=== PATIENT | male | born 1985 | race American Indian/Alaskan Native ===

== ENCOUNTER 2018-06-26 13:01 | Emergency (ER) | payer BC ==
[2018-06-26 13:08] VITALS: BP 128/80; PULSE 98; RESP 17; TEMP 99.4; O2SAT 95
[2018-06-26] MEDS ORDERED: Amoxicillin-Clav 875-125 mg Tab PO STA (13:29)
--- NOTE | 2018-06-26 13:31 | C.PDOC ---
History Of Present Illness 32 y/o male pt presents to the ER c/o fever x1 day. Associated sx includes headache (8/10), chills, body aches, sore and swollen throat. Pt reports fever yesterday was 102 degrees but was relieved when he took mucinex. Last dose was this morning. Pt denies nausea, vomiting, abdominal pain, running nose and SOB. Time Seen by Provider: 06/26/18 13:09 Chief Complaint (Nursing): Flu-like Symptoms History Per: Patient History/Exam Limitations: no limitations Onset/Duration Of Symptoms: Days (x2) Current Symptoms Are (Timing): Still Present Past Medical History Reviewed: Historical Data, Nursing Documentation, Vital Signs Vital Signs: Last Vital Signs Temp 99.4 F 06/26/18 13:05 Pulse 98 H 06/26/18 13:05 Resp 17 06/26/18 13:05 BP 128/80 06/26/18 13:05 Pulse Ox 95 06/26/18 13:05 - Medical History PMH: Asthma Family History: States: No Known Family Hx - Social History Hx Alcohol Use: Yes Hx Substance Use: No - Immunization History Hx Tetanus Toxoid Vaccination: Yes Hx Influenza Vaccination: No Hx Pneumococcal Vaccination: Yes Review Of Systems Constitutional: Positive for: Fever (102 yesterday ), Chills ENT: Positive for: Throat Pain, Throat Swelling. Negative for: Nose Discharge Respiratory: Negative for: Shortness of Breath Gastrointestinal: Negative for: Nausea, Vomiting, Abdominal Pain Musculoskeletal: Positive for: Other (body ache ) Neurological: Positive for: Headache (8/10) Physical Exam - Physical Exam Appears: Non-toxic, No Acute Distress Skin: Warm, Dry, No Rash Head: Normacephalic Eye(s): bilateral: Normal Inspection Ear(s): Bilateral: Normal Nose: Normal Oral Mucosa: Moist Throat: Exudate (L>R), No Drooling, Other (kissing tonsils ) Neck: Normal ROM, Supple Cardiovascular: Rhythm Regular Respiratory: Normal Breath Sounds, No Accessory Muscle Use Neurological/Psych: Oriented x3, Normal Speech ED Course And Treatment O2 Sat by Pulse Oximetry: 95 (RA) Pulse Ox Interpretation: Normal Medical Decision Making Medical Decision Making: plans: -- prednisone -- Amoxicillin -- Ibuprofen Patient verbalizes understanding and is in agreement with plan. Patient is stable for discharge. Disposition - Disposition Forms: [employer] (Czech) - PA / [employer] / Resident Statement / has reviewed & agrees with the documentation as recorded. - Scribe Statement The provider has reviewed the documentation as recorded by the Aron Quintero Do All medical record entries made by the Scribe were at my direction and personally dictated by me. I have reviewed the chart and agree that the record accurately reflects my personal performance of the history, physical exam, medical decision making, and the department course for this patient. I have also personally directed, reviewed, and agree with the discharge instructions and disposition.
--- NOTE | 2018-06-26 13:41 | C.PDOC ---
Time Seen by Provider: 06/26/18 13:09 Chief Complaint (Nursing): Flu-like Symptoms Past Medical History Vital Signs: Last Vital Signs Temp 99.4 F 06/26/18 13:05 Pulse 98 H 06/26/18 13:05 Resp 17 06/26/18 13:05 BP 128/80 06/26/18 13:05 Pulse Ox 95 06/26/18 13:05 - Medical History PMH: Asthma - Social History Hx Alcohol Use: Yes Hx Substance Use: No - Immunization History Hx Tetanus Toxoid Vaccination: Yes Hx Influenza Vaccination: No Hx Pneumococcal Vaccination: Yes ED Course And Treatment O2 Sat by Pulse Oximetry: 95 Disposition Counseled Patient/Family Regarding: Diagnosis, Need For Followup, Rx Given - Disposition Referrals: Beba Sanchez MD [Medical Doctor] - Disposition: HOME/ ROUTINE Disposition Time: 13:41 Condition: STABLE Additional Instructions: Please review the handout given regarding Strep Throat Take meds as instructed Alternate Tylenol and Motrin q4-6 hrs as needed for fever Rest and hydration followup with PMD in 1-2 days Return to the ED if symptoms worsen Prescriptions: Amoxicillin/Clavulanate [Augmentin 875 MG-125 MG] 1 tab PO BID #19 tab predniSONE [predniSONE Tab] 60 mg PO DAILY #15 tab Instructions: Strep Throat (DC) Forms: [facility] (Persian), Work Excuse - Clinical Impression Clinical Impression: Sore throat, Strep throat
[2018-06-26] MEDS ORDERED: Amoxicillin-Clav 875-125 mg Tab PO ONE (13:53)
== END 2018-06-26 14:07 | disposition home or self-care (01) ==
LOC: C.ER 13:01
DX: J02.0 Streptococcal pharyngitis (principal)